=== PATIENT | male | born 1940 | race Caucasian/White ===

== ENCOUNTER → 2016-09-18 | Outpatient (CLI) | payer OTHER, MEDICARE ==
[~2016-09-18] MED LIST: ATEN50TA8 PO; ATOR-22 PO; BUPRTAB51 PO; CLB200 PO; CMD1 PO; CYM60 PO; DULO60CA44 PO; FINA5TAB PO; FISHOIL PO; FRRG PO; LEVO150T9 PO; LEVO175T3 PO; LISI40TA PO; OMEG10007 PO; SYN150 PO; SYN175 PO; TRAZ50TA35 PO; VERA1CAP7 PO; coq10; saw palmetto
--- NOTE | 2016-09-18 15:42 | DIAGNOSTIC IMAGING REPORT ---
LEFT ELBOW MIN 3 VIEWS ROUTINE CLINICAL HISTORY: L ELBOW PAIN COMPARISON: None. DISCUSSION: There is a prominent olecranon spur. There is mild spurring at the level of the coronoid process. The fat pads are not displaced. There are no acute fractures. IMPRESSION: 1. No acute fractures 2. Prominent olecranon spur Electronically signed by: Peyman Purdy M.D. 09/18/2016 3:40 PM Dictated Date/Time: 09/18/2016 3:39 PM
== END | disposition home or self-care (01) ==
LOC: C.RAD1850 15:20
PROVIDERS: ATTEND Family Medicine
DX: H61.20 Impacted cerumen, unspecified ear (principal); M25.522 Pain in left elbow

== ENCOUNTER 2016-12-05 13:56 | Emergency (ER) | payer OTHER, MEDICARE ==
[~2016-12-05] VITALS: Ht 177.8 cm; Wt 79.0 kg
[~2016-12-05 13:56] MED LIST changes: -DULO60CA44 PO; -LEVO150T9 PO; -LEVO175T3 PO; -LISI40TA PO; -OMEG10007 PO; -VERA1CAP7 PO
[2016-12-05 14:02] VITALS: BP 177/96; TEMP 37.3; Ht 177.8 cm; Wt 79.0 kg
[2016-12-05] MEDS ORDERED: XYLOCAINE 1%/SOD BICARB 20 ML VIAL INFIL STA (14:09)
[2016-12-05] MEDS ORDERED: OMEG10007 PO (14:18)
[2016-12-05] MEDS ORDERED: LEVO175T3 PO (14:18)
[2016-12-05] MEDS ORDERED: VERA1CAP7 PO (14:18)
[2016-12-05] MEDS ORDERED: LISI40TA PO (14:18)
[2016-12-05] MEDS ORDERED: DULO60CA44 PO (14:18)
[2016-12-05] MEDS ORDERED: LEVO150T9 PO (14:18)
--- NOTE | 2016-12-05 14:37 | EMERGENCY ROOM VISIT NOTE ---
ED Visit Note First contact with patient: 14:05 I have seen and examined this patient with Corey Ac and generally agree with the treatment plan as discussed. Current/Historical Medications Scheduled Atenolol (Tenormin), 50 MG PO QPM Bupropion Hcl (Wellbutrin Xl), 300 MG PO QAM Duloxetine Hcl (Cymbalta), 60 MG PO DAILY Finasteride (Proscar), 5 MG PO QPM Fish Oil (Rayle-3), 1 CAP PO DAILY Levothyroxine Sodium (Levothyroxine Sodium), 150 MCG PO 4XWK Levothyroxine Sodium (Levothyroxine Sodium), 175 MCG PO 3XWK Lisinopril (Zestril), 40 MG PO DAILY Trazodone Hcl (Trazodone), 50 MG PO HS Verapamil (Verelan Pm), 300 MG PO HS Miscellaneous Medications [coq10] [saw palmetto] Allergies Coded Allergies: No Known Allergies (Verified , 12/05/16) Vital Signs Date Time Temp Pulse Resp B/P Pulse Ox O2 Delivery O2 Flow Rate FiO2 12/05/16 14:02 37.3 71 16 177/96 94 Room Air Departure Information Referrals Richard Mckeon MD (PCP) Patient Instructions My [facility]
--- NOTE | 2016-12-05 15:00 | EMERGENCY ROOM VISIT NOTE ---
ED Visit Note First contact with patient: 14:59 This Patient was discussed with the physician Flipping Machine Operator,Corey Ac PA-C. The pertinent historical and physical exam findings were confirmed. I agree with the studies ordered and with the interpretations of these studies. I agree with the disposition and care plan.
--- NOTE | 2016-12-05 15:05 | EMERGENCY ROOM VISIT NOTE ---
History First contact with patient: 14:05 Chief Complaint: FOREIGNBODY ANY BODY PART Stated Complaint: HOOK IN THUMB History of Present Illness The patient is a 76 year old male who presents to the Emergency Room via private vehicle with complaints of "hook in thumb". The patient states that 1 hour prior to arrival, he was fishing at [place], when he caught a fish and then accidentally had the hook strike him in the finger pad of the left first digit burring itself to point where he was unable to remove the hook. He rates the pain in the thumb as a 5-6/10. The patient is right-handed. Review of Systems A complete 6-point Review of Systems was discussed with the patient, with pertinent positives and negatives listed in the History of Present Illness. All remaining Review of Systems questions can be considered negative unless otherwise specified. Past Medical/Surgical History No pertinent past medical history. Family History No pertinent family history. Social History Social History: Patient lives locally. Current/Historical Medications Scheduled Atenolol (Tenormin), 50 MG PO QPM Bupropion Hcl (Wellbutrin Xl), 300 MG PO QAM Duloxetine Hcl (Cymbalta), 60 MG PO DAILY Finasteride (Proscar), 5 MG PO QPM Fish Oil (Sheridan-3), 1 CAP PO DAILY Levothyroxine Sodium (Levothyroxine Sodium), 150 MCG PO 4XWK Levothyroxine Sodium (Levothyroxine Sodium), 175 MCG PO 3XWK Lisinopril (Zestril), 40 MG PO DAILY Trazodone Hcl (Trazodone), 50 MG PO HS Verapamil (Verelan Pm), 300 MG PO HS Miscellaneous Medications [coq10] [saw palmetto] Allergies Coded Allergies: No Known Allergies (Verified , 12/05/16) Physical Exam Vital Signs Date Time Temp Pulse Resp B/P Pulse Ox O2 Delivery O2 Flow Rate FiO2 12/05/16 15:13 69 18 95 12/05/16 14:02 37.3 71 16 177/96 94 Room Air Physical Exam VITAL SIGNS - Vital signs and nursing notes were reviewed. Patient is afebrile , hypertensive at 177/96, non-tachycardic and is saturating well on room air 94% . GENERAL -76 -year-old male appearing his stated age who is in no acute distress. Communicates well with provider and answers questions appropriately. SKIN - Without rashes. There is a large hook buried in the finger pad of the left first digit. There is full range of motion of this region. No bleeding. Medical Decision & Procedures Medical Decision Patient was seen and evaluated as above. After obtaining a thorough history and physical examination consent was obtained, and the region was anesthetized, by following the same track created with the hook, and administering 1 mL of 1% buffered lidocaine. This achieved adequate anesthetization. Then after obtaining further consent, the Bend in the hook was then secured with cotton string that was sterile, and with applying pressure to the distal aspect of the foot, I then with 1 quick motion remove the hook without difficulty. There was no pain experienced. Patient had full range of motion. No bleeding noted. I rinsed the region out, and applied a bacitracin dressing. Patient was educated upon worrisome symptoms which to return. His tetanus is not up-to-date, but he declined today noting that he is following up with his family doctor tomorrow to get the shot. He was educated upon management, had questions prior to discharge and was discharged home in good condition. In evaluation treatment this patient following differential diagnoses were entertained: Retained foreign body, fracture, among others. Impression Primary Impression: Fish hook injury of left thumb Departure Information Dispostion Home / Self-Care Condition GOOD Referrals Richard Mckeon MD (PCP) Patient Instructions My [facility] Additional Instructions You were seen in the emergency Department for a fishhook in your left thumb. Please keep the area clean, apply bacitracin and a bandage for the next 2-3 days. As we discussed please follow up with your family doctor regarding today's visit , at your appointment tomorrow as well as to get your tetanus shot. Please return to the emergency department with any new/concerning symptoms. Please watch for signs of infection as we discussed. Thank you for your time.
[2016-12-05 15:13] VITALS: PULSE 69; O2SAT 95
== END 2016-12-05 15:15 | disposition home or self-care (01) ==
LOC: C.EDB 13:58 → C.EDD 15:15
DX: L92.3 Foreign body granuloma of the skin and subcutaneous tissue (principal); Z79.899 Other long term (current) drug therapy; W45.8XXA Other foreign body or object entering through skin, initial encounter; Y93.89 Activity, other specified